=== PATIENT | male | born 1975 | race Two or more races ===

== ENCOUNTER 2016-07-27 00:50 | Emergency (ER) | payer SELFPAY ==
[~2016-07-27] VITALS: Ht 182.9 cm; Wt 127.0 kg
[2016-07-27 01:00] VITALS: BP 128/82
[2016-07-27] MEDS ORDERED: GLIPIZIDE ER10 MG PO (01:05)
[2016-07-27] MEDS ORDERED: METFORMIN HCL1000 M1 ORAL (01:05)
--- NOTE | 2016-07-27 01:58 | Emergency Room Report ---
History of Present Illness General Chief Complaint: Nausea, Vomiting, and Diarrhea Source: Patient Present Illness HPI Patient present yesterday when he was in [place] he ran into a metallic sign causing injury to the right fore head He has had off-and-on dizziness since then And felt some increased nausea Denies any loss of consciousness denies any chest pain or shortness of breath Patient also reports that at 10:30 he began having diarrhea after eating some pork Denies any abdominal pain at this time Patient was not concerned about the diarrhea and was mainly concerned about his head injury Patient is blind in the right eye But otherwise denies any change of vision in the left eye Allergies: Coded Allergies: No Known Allergies (Unverified , 07/27/16) Patient History Past Medical History: see triage record Pertinent Family History: none Reviewed Nursing Documentation: PMH: Agreed, PSxH: Agreed Nursing Documentation-PMH Hx Diabetes: Yes Review of Systems All Other Systems: negative except mentioned in HPI Physical Exam Vital Signs Date Time Temp Pulse Resp B/P Pulse Ox O2 Delivery O2 Flow Rate FiO2 07/27/16 00:54 98.2 76 16 137/81 99 Room Air Sp02 EP Interpretation: reviewed, normal General Appearance: well appearing, no apparent distress Head: normocephalic - However mild abrasion on the right fore head Eyes: right eye other - Patient's with previous eye injury on the right side, left eye EOMI, left eye PERRL ENT: hearing grossly normal, normal pharynx, TMs + canals normal, uvula midline Neck: full range of motion, supple, no meningismus, no bony tend Respiratory: lungs clear, normal breath sounds, no rhonchi, no respiratory distress, no retraction, no accessory muscle use Cardiovascular #1: normal peripheral pulses, regular rate, rhythm, no edema, no gallop, no JVD, no murmur Gastrointestinal: normal bowel sounds, non tender, soft, no mass, no organomegaly, non-distended, no guarding, no hernia, no pulsatile mass, no rebound Genitourinary: no CVA tenderness Musculoskeletal: normal inspection Neurologic: oriented x3, responsive, 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, motor strength/ tone normal, sensory intact Psychiatric: mood/affect normal Skin: normal color, no rash, warm/dry, palpation normal Lymphatic: normal inspection, no adenopathy Medical Decision Making Diagnostic Impression: Primary Impression: Head injury Additional Impression: Diarrhea ER Course Patient's CT head does not show any acute disease The issue regarding diarrhea is not further investigated in the emergency room appears to be likely gastrointestinal Patient's abdomen remained soft At this time is stable for close patient followup CT/MRI/US Diagnostic Results CT/MRI/US Diagnostic Results : Impression CT head no acute disease Last Vital Signs Date Time Temp Pulse Resp B/P Pulse Ox O2 Delivery O2 Flow Rate FiO2 07/27/16 01:00 98.2 70 24 128/82 98 Room Air Status: improved Disposition: HOME, SELF-CARE Condition: Improved Additional Instructions: Patient is provided with the discharge instructions notified to follow up with primary doctor in the next 2-3 days otherwise return to the er with any worsening symptoms. Please note that this report is being documented using [employer] technology. This can lead to erroneous entry secondary to incorrect interpretation by the dictating instrument. TORSTEN CONWAY D.O. July 27, 2016 01:58
[2016-07-27 02:00] VITALS: BP 120/84
[2016-07-27 03:15] VITALS: BP 117/80
--- NOTE | 2016-07-27 09:39 | Diagnostic Imaging Report ---
Indications: Trauma Technique: Spiral acquisitions obtained through the brain. Angled axial and coronal 5 x 5 mm slices were reconstructed. Total dose length product 1439 mGycm. CTDI vol(s) 70 mGy. Dose reduction achieved using automated exposure control Comparison: None Findings: There is prominence of the ventricles and extra axial CSF spaces, out of proportion to patient's age. Focal low-attenuation within the left inferior frontal deep white matter likely reflects a small deep white matter lacunar infarct. No acute hemorrhage or edema. No mass effect or midline shift. There is apparent atrophy or absence of the right optic globe. Intact calvarium. The included sinuses are clear. The mastoids are clear. 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 Correlate with minimal findings This agrees with the preliminary interpretation provided overnight by [facility]. The CT scanner at [facility] is accredited by the [employer] and the scans are performed using protocols designed to limit radiation exposure to as low as reasonably achievable to attain images of sufficient resolution adequate for diagnostic evaluation.
== END 2016-07-27 03:15 | disposition home or self-care (01) ==
LOC: EMR 03:07
DX: S00.81XA Abrasion of other part of head, initial encounter (principal); W22.8XXA Striking against or struck by other objects, initial encounter; Y92.89 Other specified places as the place of occurrence of the external cause; R19.7 Diarrhea, unspecified; E11.9 Type 2 diabetes mellitus without complications; R42 Dizziness and giddiness
CPT/HCPCS: 70450; 99284